=== PATIENT | male | born 1940 | race African-American/Black ===

== ENCOUNTER 2020-02-24 08:23 | Emergency (ER) | payer OTHER ==
--- OUTSIDE RECORDS SUMMARY | 2020-02-24 08:50 | XMS REPORT | Clinical Summary ---
:1940 Author Organization [facility] Address [address] [place] [address] Care Team Providers Name Role Phone Unavailable Primary Care Provider Unavailable Allergies Not on File Medications Not on file Active Problems Not on file Social History Tobacco Use Types Packs/Day Years Used Date Never Assessed Sex Assigned at Date Recorded Not on file Job Start Date Occupation Industry Not on file Not on file Not on file Travel History Travel Start Travel End No recent travel history available. Last Filed Vital Signs Not on file Plan of Treatment Not on file Results Not on fileafter 02/23/2019 Insurance Payer Benefit Plan / Group Subscriber ID Type Phone A [employer]ress [employer] Android App Review [employer] [email or web address] Maps Contracted
--- OUTSIDE RECORDS SUMMARY | 2020-02-24 08:51 | XMS REPORT | Continuity of Care Document ---
:1940 Author Organization [facility] t Address [address] [place] [address] Care Team Providers Name Role Phone MD Sergei DOUGHERTY Primary Care Physician IRICLEMENTINE Attending Clinician Unavailable AHMED Attending Clinician Unavailable IRIBARREN Admitting Clinician Unavailable IAN Admitting Clinician Unavailable Advance Directives Directive Decision Effective Date Termination Date Comments Sour ce Yes N/A [facility] - [place] Problems Condition Condition Condition Status Onset Resolution Last Treating Co mments Source Name Details Category Date Date Treatment Clinician Date 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 failure Elizabe th Dyspnea Problem CHRISTU S - [facility]. 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 injury Elizabe th Pulmonary Problem ARIEL U edema S - St. Elizabe th Chronic Problem CHRISTU obstructiv S - St . e Elizabe pulmonary th disease Elevated Problem CHRISTU internatio S - St . nal Elizabe normalized th ratio (INR) Chest pain Problem [facility] TU S - St. Elizabe th Encounter Problem ARIEL U for wound S - St. re-check Elizabe th Contusion Problem ARIEL U of scalp S - St. Elizabe th Fall Problem [facility]RISTU S - St. 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 Elizabe th Acute Problem [facility]ati [facility] disease Allergies, Adverse Reactions, Alerts Allergy Allergy Status Severity Reaction(s) Onset Inactive Treating Comm ents Source Name Type Date Date Clinician Penicill Allergy Active [facility] 07-18 [facility] Elizabe e 00 th Social History Social Habit Start Date Stop Date Quantity Comments Source Sex Assigned At [birth year] Male [facility] 00:00:00 00:00:00 [place] Smoking Status Start Date Stop Date Source Ex-smoker (finding) 2019-04-12 01:41:00 2019-04-12 01:41:00 [facility] Medications Ordered Filled Start Stop Current Ordering Indication Dosage Frequency Signature Comments Components Source Medication Medication Date Date Medication? Clinician (SIG) Name Name Acetaminoph No 325mg CHRISTU en [facility] Al No 30mL CHRISTU Hydrox/Mg S [facility] Hydrox/Lamont [facility] thicone th Amitriptyli No 25mg CHRISTU ne [facility] Aspirin No 81mg CHRISTU [facility] Atorvastati No 20mg CHRISTU n Calcium [facility] Bisacodyl No 5mg CHRISTU [facility] Budesonide No .5mg [facility]U [facility] Carvedilol No 3.125mg ARIEL U [facility] Furosemide No 40mg [facility]U [facility] Levalbutero No 1.25mg ARIEL U l [facility] Levalbutero No 1.25mg ARIEL U l [facility] Montelukast No 10mg CHRISTU Sodium [facility] Nystatin No [id number] CH[facility]U [facility] Polyethylen No 1 CHRISTU e Glycol S - St [address] [facility] Sacubitril/ No 1 CHRISTU Valsartan S [facility] Tamsulosin No .4mg CHRISTU [facility]cl [facility] Tramadol No 50mg CHRISTU Hcl S [facility] Warfarin No 3mg CHRISTU Sodium S [facility] Warfarin No 3mg [facility]STU Sodium S [facility] Acetaminoph No 325mg CHRISTU en [facility] Al No 30mL CHRISTU Hydrox/Mg S [facility]. Hydrox/Lamont [facility] thicone th Amitriptyli No 25mg CHRISTU ne Hcl [facility] Aspirin No 81mg [facility]RISTU S [facility] Atorvastati No 20mg CHRISTU n Calcium S [facility] Bisacodyl No 5mg CHRISTU [facility] Budesonide No .5mg CHRISTU [facility] Carvedilol No 3.125mg ARIEL U [facility] Doxycycline No 100mg CHRISTU Monohydrate [facility] Furosemide No 40mg CHRISTU [facility] Levalbutero No 1.25mg ARIEL U l Hcl [facility] Levalbutero No 1.25mg ARIEL U l Hcl [facility] Montelukast No 10mg CHRISTU Sodium [facility] Nystatin No [id number] CHRISTU [facility] Polyethylen No 1 CHRISTU e Glycol . [address] [facility] Sacubitril/ No 1 [facility]STU Valsartan [facility] Tamsulosin No .4mg [facility]STU Hcl [facility] Tramadol No 50mg [facility] Hcl [facility] Warfarin No 3mg [facility]U Sodium [facility] Immunizations Ordered Immunization Filled Immunization Date Status Commen ts Source Name Name Flu (3 Yrs +) Hx 2018-03-12 Completed [facility] . 00:00:00 Letitia Flu (3 Yrs +) Hx 2018-03-12 Completed [facility] . 00:00:00 [place]ia Vital Signs Vital Name Observation Time Observation Value Comments Source Body Temperature 2019-04-17 12:00:00 97.9 [degF] [facility] Heart Rate 2019-04-17 12:00:00 93 /min [facility] [place] Respiratory rate 2019-04-17 12:00:00 16 /min [facility] [place] BP Systolic 2019-04-17 12:00:00 93 mm[Hg] [facility] [place] BP Diastolic 2019-04-17 12:00:00 60 mm[Hg] [facility] [place] Weight 2019-04-17 05:10:00 155 [lb_av] [facility] [place] BMI (Body Mass 2019-04-17 05:10:00 25.0 kg/m2 ARIEL US - St. Index) Let[place]ia Respiratory rate 2019-04-15 21:00:00 23 /min [facility] [place] Heart Rate 2019-04-12 01:02:00 89 /min [facility] [place] BP Systolic 2019-04-12 01:02:00 112 mm[Hg] [facility] [place] BP Diastolic 2019-04-12 01:02:00 60 mm[Hg] [facility] [place] Body Temperature 2019-03-22 23:43:00 98.1 [degF] [facility] [place] Heart Rate 2019-03-22 23:43:00 112 /min [facility] [place] Respiratory rate 2019-03-22 23:43:00 18 /min [facility] [place] BP Systolic 2019-03-22 23:43:00 123 mm[Hg] [facility] [place] BP Diastolic 2019-03-22 23:43:00 62 mm[Hg] [facility] [place] Heart Rate 2019-03-22 19:47:00 110 /min [facility] [place] Respiratory rate 2019-03-22 19:47:00 19 /min [facility] [place] BP Systolic 2019-03-22 19:47:00 119 mm[Hg] [facility] [place] BP Diastolic 2019-03-22 19:47:00 67 mm[Hg] [facility] [place] Weight 2019-03-22 17:40:00 189 [lb_av] [facility] [place] BMI (Body Mass 2019-03-22 17:40:00 30.5 kg/m2 ARIEL US - St. Index) Letitia Procedures Procedure Date / Time Performing Source Performed Clinician [facility] [place] X-ray of chest, single view 2019-04[facility] 00[facility]:00 [place] Diagnostic 2019-04-13 [facility] - [facility] esophagogastroduodenoscopy (EGD) 00:00:00 [place]ia with specimen collection Venipuncture requiring physician 2019-04-12 [facility] - St[facility] or skilled healthcare provider in 00:00:00 Letitia patient 3 years of age or older Vascular access with ultrasound 2019-04-12 [facility] - [facility] guidance 00:00:00 [place]ia Insertion PICC w/rs&i 5 yr/> 2019-04-12 [facility] ISTUS - St. 00:00:00 [place]itia X-ray of chest, single view 2019-04-11 [facility] 00:[facility]:00 [place] ECG (electrocardiogram) 2019-04-11 [facility] 00:00:00 [place] Computed tomography of head or 2019-03-22 C [facility] - [facility] brain without contrast 00:00:00 [place]ia Computed tomography of cervical 2019-03-22 [facility] - [facility] spine without contrast 00:00:[address] HEAD/BRAIN W/O DYE 2019-03-22 [facility] 00:00:[address] NECK SPINE W/O DYE 2019-03-22 [facility] 00:00:00 [place] EMERGENCY DEPT VISIT 2019-03-22 [facility] 00:00:00 [place]ia Transparent film <= 16 sq in 2019-03-22 [facility] - [facility] 00:00:00 [place]ia Plan of Care Planned Activity Planned Date Details Comments Source Goal Patient referral [code = [facility] ISTUS - St. [id number] ] Letitia Goal Patient referral [code = [facility] IST[facility] - St. [id number] ] Letitia Instructions Contusion (DC) [facility] - St Letitia Instructions Preventing Falls [facility] - [place] Instructions Acute Kidney Failure (DC) [facility] - [place] Instructions Exacerbation of COPD (DC) [facility] - [place] Encounters Start End Encounter Admission Attending Care Care Encounter Source Date/Time Date/Time Type Type Clinicians Facility Department ID 2019-04-12 2019-04-17 Discharged PHYLLIS LAGOS [id number] [facility]STU 00:00:00 13:30:[address] - [place] Elizab e th 2019-03-22 2019-03-22 Departed PHYLLIS LAGOS [id number] CHRISTU 18:25:00 23:43:[address] - [facility] Room Letitia Elizab e 2017-02-23 2017-02-25 Outpatient 2 BECK SOSA OBE [id number] [facility] 16:17[facility]00 [facility]44[facility] Results Test Description Test Time Test Comments Results Result Comments Source Automated blood leukocyte count (number/volume) 2019-04-17 0 3:40:00 Test Item Value Reference Range Interpretation Comme nts White Blood Count (test code = 6690-2) 9.6 10*3/uL [facility] automated count (number/volume) 2019-04-17 03:40:00 Test Item Value Reference Range Interpretation Comments Red Blood Count (test code = 4.45 10*6/uL 789-8) [facility] ElizabethBlood hemoglobin measurement (mass/volume)2019-04-17 03:40:00 Test Item Value Reference Range Interpretation Comments Hemoglobin (test code = 718-7) 11.2 g/dL [facility] ElizabethAutomated blood hematocrit (volume fraction)2019-04-17 03:40:00 Test Item Value Reference Range Interpretation Comments Hematocrit (test code = 4544-3) 37.0 % [facility] ElizabethAutomated erythrocyte mean corpuscular volume (MCV) [id number] 03:40:00 Test Item Value Reference Range Interpretation Comments Mean Corpuscular Volume (test code = 83 fL 787-2) [facility]. ElizabethAutomated erythrocyte mean corpuscular hemoglobin (mass per erythrocyte)2019-04-17 03:40:00 Test Item Value Reference Range Interpretation Comments Mean Corpuscular Hemoglobin (test 25.2 pg code = 785-6) [facility] - St. ElizabethAutomated erythrocyte mean corpuscular hemoglobin concentration measurement (mass/[id number] 03:40:00 Test Item Value Reference Range Interpretation Comments Mean Corpuscular Hemoglobin Concent 30.3 g/dL (test code = 786-4) [facility]. ElizabethAutomated erythrocyte distribution width [id number] 03:40:00 Test Item Value Reference Range Interpretation Comments Red Cell Distribution Width (test code 20.6 % = 788-0) [facility]. ElizabethAutomated blood platelet count (count/volume)2019-04-17 03:40:00 Test Item Value Reference Range Interpretation Comments Platelet Count (test code = 235 10*3/uL 777-3) [facility]. ElizabethAutomated blood platelet mean volume measurement 2019-04-17 03:40:00 Test Item Value Reference Range Interpretation Comments Mean Platelet Volume (test code = 9.5 28018-4) [facility]. ElizabethAutomated blood neutrophil count as percentage of total kptkqquhjz4274-61-59 03:40:00 Test Item Value Reference Range Interpretation Comments Neutrophils (%) (Auto) (test code = 74 % 770-8) [facility]. ElizabethAutomated blood immature granulocyte count as percentage of total fmousfpzdl6916-92-54 03:40:00 Test Item Value Reference Range Interpretation Comments Immature Granulocyte % (Auto) (test 1 % code = 82817-7) [facility]. ElizabethAutomated blood lymphocyte count as percentage of total [id number] 03:40:00 Test Item Value Reference Range Interpretation Comments Lymphocytes (%) (Auto) (test code = 15 % 736-9) [facility]. ElizabethAutomated blood monocyte count as percentage of total iscufgvpox0774-64-55 03:40:00 Test Item Value Reference Range Interpretation Comments Monocytes (%) (Auto) (test code = 10 % 5905-5) [facility]. ElizabethAutomated blood eosinophil count as percentage of total suigphmsmx1080-62-24 03:40:00 Test Item Value Reference Range Interpretation Comments Eosinophils (%) (Auto) (test code = 0 % 713-8) [facility]. ElizabethAutomated blood basophil count as percentage of total fnwakvleje6096-22-64 03:40:00 Test Item Value Reference Range Interpretation Comments Basophils (%) (Auto) (test code = 0 % 706-2) [facility]. ElizabethAutomated blood nucleated erythrocyte count as percentage of total volwdwfhvb0067-67-08 03:40:00 Test Item Value Reference Range Interpretation Comments Nucleated Red Blood Cells % (test code 0.0 % = 04028-5) [facility]. ElizabethAutomated blood neutrophil count (number/volume) 2019-04-17 03:40:00 Test Item Value Reference Range Interpretation Comments Neutrophils # (Auto) (test code = 7.1 10*3/uL 751-8) [facility] ElizabethAutomated blood immature granulocyte count as percentage of total yhszwpzabc0958-60-12 03:40:00 Test Item Value Reference Range Interpretation Comments Immature Granulocyte # (Auto) 0.1 10*3/uL (test code = 00687-0) [facility]. ElizabethAutomated blood lymphocyte count (number/volume) 2019-04-17 03:40:00 Test Item Value Reference Range Interpretation Comments Lymphocytes # (Auto) (test code = 1.5 10*3/uL 731-0) [facility]. ElizabethBlood monocytes automated count (number/volume) 2019-04-17 03:40:00 Test Item Value Reference Range Interpretation Comments Monocytes # (Auto) (test code = 0.9 10*3/uL 742-7) [facility]. ElizabethAutomated blood eosinophil [id number] 03:40:00 Test Item Value Reference Range Interpretation Comments Eosinophils # (Auto) (test code = 0.0 10*3/uL 711-2) [facility]. ElizabethAutomated blood basophil count (number/volume)2019-04-17 03:40:00 Test Item Value Reference Range Interpretation Comments Basophils # (Auto) (test code = 0.0 10*3/uL 704-7) [facility] St[facility] ElizabethAutomated blood nucleated erythrocyte count (count/volume)2019-04-17 03:40:00 Test Item Value Reference Range Interpretation Comments Nucleated Red Blood Cells # 0.00 10*3/uL (test code = 771-6) [facility] ElizabethService comment [id number] 03:40:00 Test Item Value Reference Range Interpretation Comments Manual Differential (test code = Not Ind 8265-1) [facility] - [facility]. ElizabethSerum or plasma sodium measurement (moles/volume) 2019-04-17 03:40:00 Test Item Value Reference Range Interpretation Comments Sodium Level (test code = 2951-2) 137 mmol/L [facility] ElizabethSerum or plasma potassium measurement (moles/volume) 2019-04-17 03:40:00 Test Item Value Reference Range Interpretation Comments Potassium Level (test code = 3.7 mmol/L 2823-3) [facility] - [facility] ElizabethSerum or plasma chloride measurement (moles/volume) 2019-04-17 03:40:00 Test Item Value Reference Range Interpretation Comments Chloride Level (test code = 2075-0) 96 mmol/L [facility] - [facility] ElizabethSerum or plasma total carbon dioxide measurement (moles/volume)2019-04-17 03:40:00 Test Item Value Reference Range Interpretation Comments Carbon Dioxide Level (test code = 35 mmol/L 8-9) [facility] - [facility] ElizabethSerum or plasma anion gap determination (moles/volume) 2019-04-17 03:40:00 Test Item Value Reference Range Interpretation Comments Anion Gap (test code = 17428-6) 10 [facility] ElizabethSerum or plasma urea nitrogen measurement (mass/volume) 2019-04-17 03:40:00 Test Item Value Reference Range Interpretation Comments Blood Urea Nitrogen (test code = 26 mg/dL 3094-0) [facility] - [facility] ElizabethSerum or plasma creatinine measurement (mass/volume) 2019-04-17 03:40:00 Test Item Value Reference Range Interpretation Comments Creatinine (test code = 2160-0) 1.1 mg/dL [facility] - St. ElizabethGFR estimate [id number] 03:40:00 Test Item Value Reference Range Interpretation Comments Estimat Glomerular Filtration Rate 69 (test code = 51769-5) [facility] ElizabethSerum or plasma glucose measurement (mass/volume) 2019-04-17 03:40:00 Test Item Value Reference Range Interpretation Comments Glucose Level (test code = 2345-7) 89 mg/dL [facility] - [facility] ElizabethSerum or plasma calcium measurement (mass/volume) 2019-04-17 03:40:00 Test Item Value Reference Range Interpretation Comments Calcium Level (test code = 90652-7) 8.5 mg/dL [facility] - [facility]. ElizabethManual blood segmented neutrophils/100 leukocytes 2019-04-15 05:50:00 Test Item Value Reference Range Interpretation Comments Neutrophils % (Manual) (test code = 81 % 769-0) [facility] - [facility]. ElizabethManual blood band neutrophils form/100 leukocytes 2019-04-15 05:50:00 Test Item Value Reference Range Interpretation Comments Band Neutrophils % (Manual) (test code 10 % = 764-1) [facility] - [facility]. ElizabethManual blood lymphocytes/100 [id number] 05:50:00 Test Item Value Reference Range Interpretation Comments Lymphocytes % (Manual) (test code = 3 % 737-7) [facility] - [facility]. ElizabethManual blood monocytes/100 [id number] 05:50:00 Test Item Value Reference Range Interpretation Comments Monocytes % (Manual) (test code = 6 % 744-3) [facility] ElizabethBlood platelet detection by light dzxkafzgof2794-65-12 05:50:00 Test Item Value Reference Range Interpretation Comments Platelet Estimate (test code = Adequate 9317-9) [facility] ElizabethBlood erythrocyte morphology finding identification 2019-04-15 05:50:00 Test Item Value Reference Range Interpretation Comments Red Blood Cell Morphology (test code = Normal 6742-1) [facility] ElizabethBlood anisocytosis detection by light microscopy 2019-04-14 03:43:00 Test Item Value Reference Range Interpretation Comments Anisocytosis (test code = 702-1) 2+ [facility] - [facility]. ElizabethBlood microcytes detection by light [id number] 03:43:00 Test Item Value Reference Range Interpretation Comments Microcytosis (test code = 741-9) 1+ [facility] - [facility]. ElizabethWhole blood hypochromia detection by light microscopy 2019-04-14 03:43:00 Test Item Value Reference Range Interpretation Comments Hypochromasia (test code = 728-6) 2+ [facility] - [facility]. ElizabethCrenated erythrocyte detection by light microscopy 2019-04-14 03:43:00 Test Item Value Reference Range Interpretation Comments Akila Cells/Echinocytes (test code = 1+ 7790-9) [facility] ElizabethBlood target cells detection by light microscopy 2019-04-14 03:43:00 Test Item Value Reference Range Interpretation Comments Target Cells (test code = 71645-7) 1+ [facility] ElizabethBlood schistocyte detection by light microscopy 2019-04-14 03:43:00 Test Item Value Reference Range Interpretation Comments Schistocytes (test code = 800-3) 1+ [facility] - [facility] ElizabethManual blood eosinophil count as percentage of total [id number] 14:00:00 Test Item Value Reference Range Interpretation Comments Eosinophils % (Manual) (test code = 2 % 714-6) [facility] ElizabethBlood polychromasia detection by light microscopy 2019-04-13 14:00:00 Test Item Value Reference Range Interpretation Comments Polychromasia (test code = 58142-6) 1+ [facility] - [facility] ElizabethSerum or plasma total bilirubin measurement (mass/volume)2019-04-13 03:45:00 Test Item Value Reference Range Interpretation Comments Total Bilirubin (test code = 0.8 mg/dL 1974-2) [facility] ElizabethSerum or plasma aspartate aminotransferase measurement (enzymatic activity/volume)2019-04-13 03:45:00 Test Item Value Reference Range Interpretation Comments Aspartate Amino Transf (AST/SGOT) 22 U/L (test code = 1920-8) [facility] - [facility]. ElizabethSerum or plasma alanine aminotransferase measurement (enzymatic activity/volume)2019-04-13 03:45:00 Test Item Value Reference Range Interpretation Comments Alanine Aminotransferase (ALT/SGPT) 21 U/L (test code = 1742-6) [facility] - [facility]. ElizabethSerum or plasma protein measurement (mass/volume) 2019-04-13 03:45:00 Test Item Value Reference Range Interpretation Comments Total Protein (test code = 2885-2) 5.9 g/dL [facility] ElizabethSerum or plasma albumin measurement (mass/volume) 2019-04-13 03:45:00 Test Item Value Reference Range Interpretation Comments Albumin (test code = 1751-7) 3.1 g/dL [facility] - [facility] ElizabethSerum or plasma alkaline phosphatase measurement (enzymatic activity/volume)2019-04-13 03:45:00 Test Item Value Reference Range Interpretation Comments Alkaline Phosphatase (test code = 60 U/L 6768-6) [facility] - [facility] ElizabethSerum or plasma ferritin measurement (mass/volume) 2019-04-13 03:45:00 Test Item Value Reference Range Interpretation Comments Ferritin (test code = 2276-4) 139 ng/mL [facility]. ElibeDetermination of flow rate of inhaled [id number] 17:49:00 Test Item Value Reference Range Interpretation Comments Blood Gas Liter Flow (test code = 3 L/min 3151-8) [facility]. ElizabeArterial blood pH trewsgdxdfp0663-14-56 17:49:00 Test Item Value Reference Range Interpretation Comments Arterial Blood pH (test code = 2744-1) 7.376 [facility] ElizabeArterial blood partial pressure of carbon dioxide 2019-04-12 17:49:00 Test Item Value Reference Range Interpretation Comments Arterial Blood Partial Pressure 44.6 mm[Hg] CO2 (test code = 2019-8) [facility]. ElizabethArterial blood partial pressure of oxygen measurement 2019-04-12 17:49:00 Test Item Value Reference Range Interpretation Comments Arterial Blood Partial Pressure 80.2 mm[Hg] O2 (test code = 2703-7) [facility]. ElizabethArterial blood bicarbonate measurement (moles/volume) 2019-04-12 17:49:00 Test Item Value Reference Range Interpretation Comments Arterial Blood HCO3 (test code = 25.6 mmol/L 1959-4) [facility]. ElizabethArterial blood base excess determination by calculation (moles/volume)2019-04-12 17:49:00 Test Item Value Reference Range Interpretation Comments Arterial Blood Base Excess (test 0.2 mmol/L code = 1925-7) [facility]. ElizabethArterial blood hemoglobin measurement by oximetry (mass/volume)2019-04-12 17:49:00 Test Item Value Reference Range Interpretation Comments Arterial Blood Hemoglobin (test code 8.6 g/dL = 96123-4) [facility]. [place] HillAr[place] blood oxygen saturation [id number] 17:49:00 Test Item Value Reference Range Interpretation Comments Arterial Blood Oxygen Saturation (test 95.7 % code = 2708-6) [facility] ElibethArterial blood carboxyhemoglobin/total hemoglobin ratio (mass fraction)2019-04-12 17:49:00 Test Item Value Reference Range Interpretation Comments Arterial Blood Carboxyhemoglobin (test 1.2 % code = 2030-5) [facility] met[facility]/total hemoglobin ratio (mass fraction)2019-04-12 17:49:00 Test Item Value Reference Range Interpretation Comments Arterial Blood Methemoglobin (test code 0.2 % = 2615-3) [facility] ElibeArterial blood oxyhemoglobin/total hemoglobin ratio (mass fraction)2019-04-12 17:49:00 Test Item Value Reference Range Interpretation Comments Arterial Blood Oxyhemoglobin (test 94.4 % code = 2714-4) [facility] deoxyhemoglobin/total hemoglobin mass [id number] 17:49:00 Test Item Value Reference Range Interpretation Comments Reduced Hemoglobin (test code = 4.2 % 30353-9) [facility] ElibeArterial blood oxygen content by [id number] 17:49:00 Test Item Value Reference Range Interpretation Comments Arterial Blood Oxygen Content 11.5 mL/dL (test code = 06047-6) [facility]. [facility] deliv source Bystuyrvcox9936-08-26 17:49:00 Test Item Value Reference Range Interpretation Comments Oxygen Delivery Device (test code = CANNULA 23307-7) [facility] Hospitalpecimen drawn from [id number] 17:49:00 Test Item Value Reference Range Interpretation Comments Blood Gas Puncture Site (test Left Radial code = 57081-5) [facility] patency prior to arterial [id number] 17:49:00 Test Item Value Reference Range Interpretation Comments Fabian Test (test code = 01129-3) Pass [facility] identification by respiratory [id number] 17:15:00 Test Item Value Reference Range Interpretation Comments Respiratory Culture Staphylococcus aureus (test code = 43273-2) [facility] or plasma iron measurement (mass/volume)2019-04-12 08:52:00 Test Item Value Reference Range Interpretation Comments Iron Level (test code = 2498-4) 7 ug/dL [facility] plasma unsaturated iron binding capacity measurement (mass/volume)2019-04-12 08:52:00 Test Item Value Reference Range Interpretation Comments Unsaturated Iron Binding (test code 213 ug/dL = 2501-5) [facility] plasma iron binding capacity measurement (mass/volume)2019-04-12 08:52:00 Test Item Value Reference Range Interpretation Comments Total Iron Binding Capacity (test 220 ug/dL code = 2500-7) [facility] plasma iron saturation measurement (mass fraction)2019-04-12 08:52:00 Test Item Value Reference Range Interpretation Comments Percent Iron Saturation (test code = 3 % 2502-3) [facility] blood natriuretic peptide B measurement (mass/volume)2019-04-11 20:00:00 Test Item Value Reference Range Interpretation Comments Bedside B-Type Natriuretic Peptide 88 pg/mL (test code = 39150-6) [facility] cardiac troponin I measurement (mass/volume) 2019-04-11 19:58:00 Test Item Value Reference Range Interpretation Comments Bedside Troponin I (test code = 0.04 ng/mL 84623-1) [facility] platelet apvzcrut1449-66-22 19:54:00 Test Item Value Reference Range Interpretation Comments Immature Platelet Fraction (test code = 0.8 % 43290-9) [facility]ual blood basophils/100 [id number] 19:54:00 Test Item Value Reference Range Interpretation Comments Basophils % (Manual) (test code = 1 % 707-0) [facility] blood metamyelocytes/100 jmfmwtbddw6808-91-71 19:54:00 Test Item Value Reference Range Interpretation Comments Metamyelocytes % (test code = 740-1) 1 % [facility] ovalocytes detection by light hgodhzjkvb7450-75-18 19:54:00 Test Item Value Reference Range Interpretation Comments Ovalocytes (test code = 774-0) 1+ [facility] dacrocytes detection by light bxgcgihjos0592-41-33 19:54:00 Test Item Value Reference Range Interpretation Comments Tear Drop Cells (test code = 7791-7) 1+ [facility]Prothrombin time (PT) in platelet poor [id number] 19:54:00 Test Item Value Reference Range Interpretation Comments Prothrombin Time (test code = 5902-2) 11.[address] [facility] Platelet poor plasma by Coagulation assay 2019-04-11 19:54:00 Test Item Value Reference Range Interpretation Comments Prothromb Time International 1.1 {ratio} Ratio (test code = 6301-6) [facility] partial thromboplastin time (PTT)2019-04-11 19:54:00 Test Item Value Reference Range Interpretation Comments Activated Partial Thromboplast Time 25.9 s (test code = 28422-9) [facility] [id number] 15:51:[address] [address]DKPJIWKBWC IMAGING REPORTPatient Name: Godwin PANIAGUA of Service: [id number]: 78 Sex: M Order #: 100 Room: ORMDOB: 1940 X-Ray Number: [id number] Record Number: [id number] Hospital Number:[id number] Physician: Ayesha DOUGHERTY Physician: Giovanny DOUGHERTY densitometry study:History: Osteoporosis.Findings:Region of interest measurements were taken of the lumbar spine from Q6vozwnmc L4. Bone mineral density measures 1.339 g/sq cm. This correspondsto T score of 1.0. This is consistent with a normal bone density.Additional region of interest measurements were obtained of the hips.Bone mineral density in the left femur neck is 1.052 g/sq cm. Thiscorresponds to T score of -0.1 consistent with a normal bone density .Bone mineral density in the right femur neck is 1.053 g/sq cm. Thiscorresponds to a T score of -0.1 consistent with a normal density .Impression:Findings consistent with normal bone density .For additional details, please see computed generated report from same day.Electronically Signed By: Cosme Norman M.D., 02/14/2019 12:01 PMLegally authenticated by FELIZ TALAMANTES 2019-02-14 12:01:52CT Angio Chest 2018-08-15 17:07:28Patient: DEMARCO PANIAGUA Jr Date/Time08/15/201816:44 CSTReason for Examshortness of breathReportInformation: Dyspnea, chest pain, former smoking history and recent cardiac pacemaker placementCTA of the chestMultiplanar reformatted 2-D and 3-D images of the chest were obtained following the intravenous injection of 100 cc of Omnipaque 350 nonionic contrast mediumThere are no intraluminal filling defects within the imaged pulmonary arteries. Atherosclerotic changes of the thoracic aorta is demonstrated without aneurysmal dilatation. The heart is wi thin normal limits in size. There is no evidence of a pericardial effusion. There are no mediastinalmasses. There are no enlarged mediastinal lymph nodes. Multiple bilateral bulla are identified. Reticular-nodular interstitial changes consistent with pulmonary fibrosis throughout both lung lei. There are linear pleural parenchymal opacities consistent with scarring. Confluent opacity of the rightlower lobe can represent focal fibrosis. Infiltrate is not excluded. The possibility of early neoplasm formation is less likely. There are no pleural effusions. Moderate kyphosis and spondyloarthropathy changes of the thoracic spine is demonstrated. Left-sided cardiac pacemaker/defibrillator is noted.There is a edema surrounding the the battery consistent with recent pacemaker placement. There are multiple bilateral cortical renal cysts. Gallstones are identified.IMPRESSION::1. No evidence of pulmonary emboli2. COPD3. Bilateral pulmonary fibrosis and pleural parenchymal scarring4. Confluent opacity of the right lower lobe which can represent focal fibrosis. Infiltrate not excluded. The possibility of neoplasm is less likely5. Cardiac pacemaker.6. Bilateral cortical renal cysts7. CholelithiasisRadiation dose lowering techniques were used with automated exposure control, adjusting the mA according to patient's size. Final Dictated by: MD Liu Gustavo MDictated DT/TM: 08/15/2018 5:03 pmSigned by: MD Liu Gustavo MSigned (Electronic Signature): 08/15/2018 5:07 pmMRI UP EXT W/[id number] 14:36:[address] [address]SBYUGTVZNW IMAGING REPORTPatient Name: Godwin PANIAGUA of Service: [id number]: 78 Sex: M Order #: 100 Room: OPEDOB: 1940 X-Ray Number: [id number] Record Number: [id number] Hospital Number:[id number] Physician: Ayesha DOUGHERTY Physician: TITO DOUGHERTY right shoulder without contrast 12:00 PMHISTORY: Status post fall with RIGHT shoulder pain and decreased range ofmotion.FINDINGS:There is a full-thickness rotator cuff tear involving the supraspinatuscritical zone far anteriorly measuring 14 mm in length. This issuperimposed and hypertrophic tendinosis.There is AC joint hypertrophic change mildly encroaching on themyotendinous junction.The biceps tendon lies within the bicipital groove.There is no evidence for displaced labral tear.Moderate degree of bursitis and a small joint effusion.There is no acute fracture or dislocation.There is mild glenohumeral joint osteoarthritis.No substantial muscular atrophy is identified.IMPRESSION:Small full-thickness rotator cuff tear.Osteoarthritis.Electronically Signed By: Cosme Norman M.D., 04/19/2018 2:33 PMLegally authenticated by FELIZ TALAMANTES 2018-04-19 14:33:27MRI BRAIN W/O [id number] 11:45:[address] [address]XUBIRALGBB IMAGING REPORTPatient Name: Godwin PANIAGUA of Service: [id number]: 77 Sex: M Order #: 100 Room: OPODOB: 1940 X-Ray Number: [id number] Record Number: [id number] Hospital Number:[id number] Physician: Ayesha DOUGHERYT Physician: HIRA DOUGHERTYBrain MRI.History: Right-sided weakness and numbness.Technique: Unenhanced multiplanar multisequence MRI images of the brainwere reviewed.Comparison: None.Findings:There are no specific acute appearing intracranial defectsdepicted.There is scattered periventricular deep white matter high signal mostconsistent with chronic microvascular ischemic changes.The ventricles appear symmetric and midline.The lira-white matter dif ferentiation appears normal.The intracranial flow voids appear normal.There are no areas of diffusion restriction to suggest the presence ofacute or subacute ischemia.Impression:Old appearing ischemic changes, no specific acute appearing intracranialdefects.Electronically Signed By: Michael Arguelles M.D., 10/03/2017 11:43 AMLegally authenticated by DUNCAN Epstein 2017-10-03 11:43:21WHOLE BLOOD [id number] 12:22:00 Test Item Value Reference Range Interpretation Comments WHOLE BLOOD GLUCOSE 114 mg/dL 70-99 H Fastin g glucose (test code = POC GLU) normal <100 MG/DL- [employer] recommend ation CHEST XR 2 [id number] 08:06:[address] [address]ZCDZYXKQLI IMAGING REPORTPatient Name: Godwin PANIAGUA of Service: [id number]: 77 Sex: M Order #: [id number] [facility]SDOB[facility] 1940 X-Ray Number: [id number] Record Number: [id number] HospitalNumber: [id number] Physician: Tika SOSA Physician: CLEO SOSA.7:26 AMHistory: Short of breath.Comparison: September 06, 2017.Technique: PA and lateral chest projections.Findings: PA and lateral views of the chest demonstrate normal heart sizeand strandy left basilar infiltrate, similar to that which was notedpreviously.Impression:Persistent left basilar infiltrate, probable pneumo kassi, correlateclinically.Electronically Signed By: Michael Arguelles M.D., 09/07/2017 8:03 AMLegallyauthenticated by DUNCAN Epstein 2017-09-07 08:03:41 WHOLE BLOOD [id number] 19:57:00 Test Item Value Reference Range Interpretation Comments WHOLE BLOOD GLUCOSE 162 mg/dL 70-99 H Fastin g glucose (test code = POC GLU) normal <100 MG/DL- [employer] recommend ation WHOLE BLOOD [id number] 17:32:00 Test Item Value Reference Range Interpretation Comments WHOLE BLOOD GLUCOSE 209 mg/dL 70-99 H Fastin g glucose (test code = POC GLU) normal <100 MG/DL- [employer] recommend ation WHOLE BLOOD [id number] 16:57:00 Test Item Value Reference Range Interpretation Comments WHOLE BLOOD GLUCOSE 147 mg/dL 70-99 H Fastin g glucose (test code = POC GLU) normal <100 MG/DL- [employer] recommend ation CHEST XR 2 [id number] 13:33:[address] [address]HHDVJUCVIS IMAGING REPORTPatient Name: Godwin PANIAGUA of Service: [id number]: 77 Sex: M Order #: [id number] [facility] 4SDOB[facility] 1940 X-Ray Number: [id number] Record Number: [id number] Hospital Number: [id number] Physician: Tika SOSA Physician: Cleo SOSA 2 views 11:15 AMHISTORY: Emphysema, and my previous smoker.FINDINGS:There is a patchy and strandy density at the LEFT lung base could representatelectasis or developing pneumonia.There is emphysema.Heart size is stable.There is no definite pleural effusion or pneumothorax.IMPRESSION:Patchy LEFT lower lobe pulmonary infiltrate which could representatelectasis versus pneumonia.Electronically Signed By: Cosme Norman M.D., 09/06/2017 1:31 PMLegally authenticated by FELIZ TALAMANTES 2017-09-06 13:31:17 WHOLE BLOOD [id number] 08:04:00 Test Item Value Reference Range Interpretation Comments WHOLE BLOOD GLUCOSE 173 mg/dL 70-99 H Fastin g glucose (test code = POC GLU) normal <100 MG/DL- [employer] recommend ation WHOLE BLOOD [id number] 07:41:00 Test Item Value Reference Range Interpretation Comments WHOLE BLOOD GLUCOSE 205 mg/dL 70-99 H Fastin g glucose (test code = POC GLU) normal <100 MG/DL- [employer] recommend ation [id number] 05:49:00 Test Item Value Reference Range Interpretation Comments WBC (test code = WBC) 25.8 K/UL 3.5-10.9 H RBC (test code = RBC) 4.04 M/UL 4.3-5.7 L HGB (test code = HGB) 10.9 G/DL 13.0-17.9 L HCT (test code = HCT) 33.3 % 38-52 L MCV (test code = MCV) 82.4 FL 80-98 MCH (test code = MCH) 27.0 PG 28-32 L MCHC (test code = MCHC) 32.7 G/DL 32.5-36.5 RDW (test code = RDW) 16.9 % 11.5-14.5 H PLT (test code = PLT) 463 K/UL 150-450 H MPV (test code = MPV) 9.6 FL 7.4-10.4 MANDIFF (test code = MANDIFF) YES SCAN (test code = SCAN) NO NEUT% (test code = NEUT%) 83 % 40-75 H LYMPH% (test code = LYMPH%) 8 % 24-44 L MONO% (test code = MONO%) 5 % 0-13 BAND (test code = BAND) 2 RLYMP (test code = RLYMP) 2 NRBC% (test code = NRBC%) 0 /100 WBC PLT-EST (test code = PLT-EST) INCREASED NORMAL ANISOCYTOISIS (test code = ANIS) 2+ AKILA CELLS (test code = BURC) 2+ ABS NEUT (test code = NEUT) 22.2 K/UL 1.2-7.2 H BMP, BASIC METABOLIC [id number] 05:27:00 Test Item Value Reference Range Interpretation Comments SODIUM (test code 143 MMOL/L 137-145 = NA) K+ (test code = 3.8 MMOL/L 3.5-5.1 PLEASE NOTE NEW KSERUM) REFERENCE RANGE (S) IN EFFECT EFF ECTIVE 01/14/2010 - NEW ANALYZER (VITRO S 5600) CHLORIDE (test 100 MMOL/L 98-107 code = CL) CO2 (test code = 30 MMOL/L 22-30 CO2) BUN (test code = 21 MG/DL 9-20 H BUN) CREA (test code = 0.9 MG/DL 0.8-1.5 CREA) GLUCOSE (test code 166 MG/DL 70-99 H Fasting glucose = GLUCOSE) normal <100 MG/ DL- [employer] recommendation* * CALCIUM (test code 8.9 MG/DL 8.4-10.2 = CABLOOD) GFR (test code = TNP GFR CALCULA TION IS GFR) mL/min/1.73m2 NOT APPLICABLE FOR PATIENTS <18 A GFR of >90 mL/min/1 .73m2 is considered n ormal. [id number] 22:27:00 Test Item Value Reference Range Interpretation Comments MG (test code = MG) 1.8 mg/dL 1.6-2.3 [id number] 22:26:00 Test Item Value Reference Range Interpretation Comments K+ (test code = 4.0 MMOL/L 3.5-5.1 PLEASE NOTE NEW KSERUM) REFERENCE RANGE (S) IN EFFECT EFF ECTIVE 01/14/2010 - NEW ANALYZER (VITROS 5600) WHOLE BLOOD [id number] 20:45:00 Test Item Value Reference Range Interpretation Comments WHOLE BLOOD GLUCOSE 253 mg/dL 70-99 H Fastin g glucose (test code = POC GLU) normal <100 MG/DL- [employer] recommend ation WHOLE BLOOD [id number] 12:30:00 Test Item Value Reference Range Interpretation Comments WHOLE BLOOD GLUCOSE 248 mg/dL 70-99 H Fastin g glucose (test code = POC GLU) normal <100 MG/DL- [employer] recommend ation WHOLE BLOOD [id number] 09:31:00 Test Item Value Reference Range Interpretation Comments WHOLE BLOOD GLUCOSE 182 mg/dL 70-99 H Fastin g glucose (test code = POC GLU) normal <100 MG/DL- [employer] recommend ation BMP, BASIC METABOLIC [id number] 20:44:00 Test Item Value Reference Range Interpretation Comments SODIUM (test code 138 MMOL/L 137-145 = NA) K+ (test code = 3.3 MMOL/L 3.5-5.1 L PLEASE NOTE NEW KSERUM) REFERENCE RANGE (S) IN EFFECT EFF ECTIVE 01/14/2010 - NEW ANALYZER (VITRO S 5600) CHLORIDE (test 94 MMOL/L 98-107 L code = CL) CO2 (test code = 28 MMOL/L 22-30 CO2) BUN (test code = 22 MG/DL 9-20 H BUN) CREA (test code = 1.1 MG/DL 0.8-1.5 CREA) GLUCOSE (test code 209 MG/DL 70-99 H Fasting glucose = GLUCOSE) normal <100 MG/ DL- [employer] recommendation* * CALCIUM (test code 8.9 MG/DL 8.4-10.2 = CABLOOD) GFR (test code = TNP GFR CALCULA TION IS GFR) mL/min/1.73m2 NOT APPLICABLE FOR PATIENTS <18 A GFR of >90 mL/min/1 .73m2 is considered n ormal. [id number] 20:08:00 Test Item Value Reference Range Interpretation Comments WBC (test code = 13.1 K/UL 3.5-10.9 H WBC) RBC (test code = 4.38 M/UL 4.3-5.7 RBC) HGB (test code = 12.1 G/DL 13.0-17.9 L HGB) HCT (test code = 36.0 % 38-52 L HCT) MCV (test code = 82.2 FL 80-98 MCV) MCH (test code = 27.6 PG 28-32 L MCH) MCHC (test code = 33.6 G/DL 32.5-36.5 MCHC) RDW (test code = 16.6 % 11.5-14.5 H RDW) PLT (test code = 451 K/UL 150-450 H PLT) MPV (test code = 9.8 FL 7.4-10.4 MPV) MANDIFF (test code = NO MANDIFF) SCAN (test code = NO SCAN) NEUT% (test code = 88.4 % 40-75 H NEUT%) LYMPH% (test code = 6.7 % 24-44 L LYMPH%) MONO% (test code = 3.9 % 0-13 MONO%) EOS% (test code = 0.0 % 0-4 EOS%) BASO % (test code = 0.2 % 0-2 BASO%) IG% (test code = 0.8 % 0-1 IG% = Metam yelocytes, IG%) Myelocytes, and Promyelocytes. (Immature neutr ophils not including " bands".) > 3% IG indic ates risk of sepsis NRBC% (test code = 0 /100 WBC NRBC%) ABS NEUT (test code 11.6 K/UL 1.2-7.2 H = NEUT) [id number] 10:08:00QRS Interval: 108msQT Interval: 446msQTC Interval: 489msP Greenwood: 70degQRS [place]: -75degT Wave [place]: 107degP-R Interval: 156msecRR Interval: 833msecHeart Rate: 72bpmI 40 [place]: 74degT 40 [place]: -81degST [place]: 68degEKG Severity: - ABNORMAL ECG -REPORT:Sinus rhythmREPORT:Ventricular premature complexREPORT:Biatrial enlargementREPORT:Left anterior fascicular blockREPORT:Anterolateral infarct, acute (LAD)REPORT:ST elevation, consider inferior [id number] 10:07:00QRS Interval: 89msQT Interval: 412msQTC Interval: 485msP Green[place]: -45degQRS [place]: -79degT Wave [place]: 145degP-R Interval: 151msecRR Interval: 723msecHeart Rate: 83bpmI 40 [place]: 161degT 40 [place]: -86degST [place]: 22degEKG Severity: - ABNORMAL ECG -REPORT:Ectopic atrial rhythmREPORT:Inferior infarct, oldREPORT:Anterolateral infarct, acute (LAD)EKG 2017-08-09 10:06:00QRS Interval: 100msQT Interval: 444msQTC Interval: 513msP [place]: -71degQRS [place]: -81degT Wave [place]: 137degP-R Interval: 101msecRR Interval: 750msecHeart Rate: 80bpmI 40 [place]: degT 40 [place]: -86degST [place]: 63degEKG Severity: - ABNORMAL ECG -REPORT:Ectopic atrial rhythmREPORT:Left anterior fascicular blockREPORT:Anterolateral infarct, acute (LAD)REPORT:ST elevation, consider inferior injuryREPORT:Prolonged QT intervalCHEST 1 [id number] 17:35:00[place]ABrad [place] [id number] IMAGING REPORTPatient Name: [facility] Service: [id number]: 76 Sex: M Order #: [id number] Room: [facility] A 4SDOB: 1940 X-Ray Number: [id number] Record Number: [id number] Hospital Number: [id number] Physician: PANTERA SOSA -Ordering Physician: PANTERA SOSA -SANDIP UPRIGHT PORTABLE CHEST:CLINICAL HISTORY: Dyspnea and coughTECHNIQUE: One viewFINDINGS:There are monitor leads seen on the chest.The heart and vascularity within normal limits.There are no active infiltrates or definite effusion seen.There are mild chronic interstitial changes at the lung bases.Impression: No acute changes are demonstrated and there has been no changesince 30 August 2016.Electronically Signed By: Kobe Vidal M.D., 02/23/2017 5:33 PMLegally authenticated by JOSELYN Onofre 2017-02-23 17:33:32MRI C-SPINE W/O [id number] 14:06:[address] [address]NLBLNUQNSE IMAGING REPORTPatient Name: [facility]LL[facility] of Service: [id number]: 76 Sex: M Order #: 100 Room: OPODOB: 1940 X-Ray Number: [id number] Record Number: [id number] Hospital Number:[id number] Physician: BRANDIN BERRIOS [facility] Physician: BRANDIN BERRIOS [facility] spine MRI.Available clinical information: Right shoulder pain with decreased range ofmotion.Technique: Examination consists of sagittal T1, T2, and STIR images. Thereare axial T2 and T2 gradient echo images.Findings: Vertebral body heights and posterior alignment are normallymaintained. There is loss of the normal lordotic curve from C2 through C6,raising possibility of muscle spasm. All the discs have loss of T2 watersignal. There is marked narrowing of the C5-6 disc with moderate narrowingat C4-5 and C3-4. The odontoid process and craniocervical junctionstructures are unremarkable. The visualized cord is of normal size andsignal characteristics. There are areas of increased T1 and T2 signal inthe anterior inferior body of C2, inferior anterior left body of C5, theright posterior body of C7 extending into its lamina, and the upper body ofT2. These areas are consistent with fat deposition and/or hemangiomas.At C2-3, there is slight bulging. The spinal canal is well-maintained. Theneural foramina are adequately maintained.At C3-4, there is moderate disc narrowing and some posterior osteochondralbar formation, worse laterally to the right. The canal diameter is reducedto about 11 mm in midline, not into the range of spinal stenosis. There ismarked bilateral neural foraminal narrowing which could produceradiculopathy to either side.At C4-5, there is moderate narrowing of the disc. The canal is mildlyreduced to about 11 mm, not into the range of spinal stenosis. There issignificant bilateral neural foraminal narrowing mostly due to uncinatehypertrophy. Bilateral radiculopathy is possible.At C5-6, there is marked narrowing of the disc. Canal diameter is reducedto about 10 mm, borderline for spinal stenosis. There is marked bilateralneural foraminal narrowing could produce radiculopathy.At C6-7, there ismild disc narrowing and some mild posterior bulging. Thespinal canal is well-maintained. There is mod erate narrowing of the neuralforamina, worse than left. Left radiculopathy is possible.At C7-T1, there is no significant disc bulging or herniation. The spinalcanal and neuroforamina are well-maintained.Impression:1. Marked C5-6 disc degenerative narrowing and borderline spinal stenosis.2. Moderate disc narrowing at C3-4 and C4-5.3. Marked bilateral neural foraminal narrowing at multiple levels couldproduce radiculopathy.Electronically Signed By: Rambo Rivera M.D., 09/19/2016 2:04 PMLegally authenticated by TAYLOR KENNEDY 2016-09-19 14:04:[id number] 10:59:00QRS Interval: 110msQT Interval: 395msQTC Interval: 427msP Greenwood: 59degQRS [place]wood: -54degT Wave [place]: 55degP-R Interval: 160msecRR Interval: 857msecHeart Rate: 70bpmI 40 [place]: 61degT 40 [place]: -66degST Green[place]: 75degEKG Severity: - ABNORMAL ECG -REPORT:Sinus rhythmREPORT:Left anterior fascicular blockCHEST XR 2 [id number] 16:03:[address] [address]ETYRMXNQUB IMAGING REPORTPatient Name: Godwin PANIAGUA of Service: [id number]: 76 Sex: M Order #: [id number] Room: [facility]: [facility] X- Ray Number: [id number] Record Number: [id number] Hospital Number: [id number] Physician: Chivo BURTONing Physician: JOE BURTON and lateral chest. - 08/30/2016. 1529 hrs.INDICATION: COPD.COMPARISON: Chest of 08/03/2016.FINDINGS:The lungs are moderately hyperinflated. Flattening of the diaphragms ispresent. No consolidation or effusion is seen. The heart, mediastinum, softtissues and osseous structures are stable.IMPRESSION:Stable COPD.Electronically Signed By: Ivonne Seaman M.D., 08/30/2016 4:00 PMLegally authenticated by ABELARDO VITAL 2016-08-30 16:00:[id number] 12:59:00QRS Interval: 101msQT Interval: 352msQTC Interval: 434msP Greenwood: 66degQRS [place]: - 67degT Wave [place]: 46degP-R Interval: 144msecRR Interval: 659msecHeart Rate: 91bpmI 40 [place]: 37degT 40 [place]: -83degST Green[place]: 60degEKG Severity: - ABNORMAL ECG -REPORT:Sinus rhythmREPORT:Ventricular bigeminyREPORT:Left anterior fascicular blockCHEST XR 2 [id number] 10:21:[address] [address]GGQFCWULGP IMAGING REPORTPatient Name: Godwin PANIAGUA of Service: [id number]: 76 Sex: M Order #: [id number] Room: [facility]: 1940 X-Ray Number: [id number] Record Number: [id number] Hospital Number:[id number] Physician: Chivo BURTONing Physician: Elder BURTON 2 views 08/03/2016 at9:40 AM.History: 76-year-old male. COPD.Comparison: 12/04/2015.Findings:There is hyperinflation. There are a few scattered linear densities whichhave a chronic appearance. There is no infiltrate, edema or effusion. Thereis a 0.4 cm granuloma in the right lung base. There is no infiltrate, edemaor effusion. The heart is normal size. The regional skeleton is intact.There are mild degenerative changes ofthe thoracic spine.Impression:1. No evidence of active disease.2. Please see above.3. Recommend follow-up as clinically warranted.Electronically Signed By: Lorena Scott M.D., 08/03/2016 10:18 AMLegally authenticated by MARIA GUADALUPE RED 2016-08-03 10:18:38
--- NOTE | 2020-02-24 09:16 | EDPHYS ---
Physician Documentation [facility] Name: Dean Bella Jr Age: 79 yrs Sex: Male : 1940 Arrival Date: 02/24/2020 Time: 08:24 Bed 6 Private MD: ED Physician Mauricio Kirkland HPI: 02/23 08:39 This 79 yrs old Black Male presents to ER via EMS with complaints of Urinary Retention. claudio 08:39 The patient presents with urinary symptoms, dribbling of urine, retention, unable to claudio void. Onset: The symptoms/episode began/occurred 1 day(s) ago. Modifying factors: The symptoms are alleviated by nothing, the symptoms are aggravated by nothing. Associated signs and symptoms: The patient has no apparent associated signs or symptoms. Severity of symptoms: At their worst the symptoms were mild, in the emergency department the symptoms are unchanged. The patient has not experienced similar symptoms in the past. Historical: - Allergies: 08:29 PENICILLINS; bp - PMHx: 08:29 Hyperlipidemia; Depression; Anxiety; Hypertension; CVA; COPD; GERD; bp - Immunization history:: Adult Immunizations up to date. - Social history:: Smoking status: Patient/guardian denies using tobacco. - Family history:: not pertinent. ROS: 08:39 Constitutional: Negative for fever, chills, and weight loss, Eyes: Negative for injury, claudio pain, redness, and discharge, ENT: Negative for injury, pain, and discharge, Neck: Negative for injury, pain, and swelling, Cardiovascular: Negative for chest pain, palpitations, and edema, Abdomen/GI: Negative for abdominal pain, nausea, vomiting, diarrhea, and constipation, Back: Negative for injury and pain, MS/Extremity: Negative for injury and deformity, Skin: Negative for injury, rash, and discoloration, Neuro: Negative for headache, weakness, numbness, tingling, and seizure, Psych: Negative for depression, anxiety, suicide ideation, homicidal ideation, and hallucinations, Allergy/Immunology: Negative for hives, rash, and allergies, Endocrine: Negative for neck swelling, polydipsia, polyuria, polyphagia, and marked weight changes, Hematologic/Lymphatic: Negative for swollen nodes, abnormal bleeding, and unusual bruising. 08:39 Respiratory: Positive for cough, shortness of breath, at rest. Exam: 08:39 Constitutional: This is a well developed, well nourished patient who is awake, alert, claudio and in no acute distress. Head/Face: Normocephalic, atraumatic. Eyes: Pupils equal round and reactive to light, extra-ocular motions intact. Lids and lashes normal. Conjunctiva and sclera are non-icteric and not injected. Cornea within normal limits. Periorbital areas with no swelling, redness, or edema. ENT: Nares patent. No nasal discharge, no septal abnormalities noted. Tympanic membranes are normal and external auditory canals are clear. Oropharynx with no redness, swelling, or masses, exudates, or evidence of obstruction, uvula midline. Mucous membranes moist. Neck: Trachea midline, no thyromegaly or masses palpated, and no cervical lymphadenopathy. Supple, full range of motion without nuchal rigidity, or vertebral point tenderness. No Meningismus. Chest/axilla: Normal chest wall appearance and motion. Nontender with no deformity. No lesions are appreciated. Cardiovascular: Regular rate and rhythm with a normal S1 and S2. No gallops, murmurs, or rubs. Normal PMI, no JVD. No pulse deficits. Abdomen/GI: Soft, non-tender, with normal bowel sounds. No distension or tympany. No guarding or rebound. No evidence of tenderness throughout. Back: No spinal tenderness. No costovertebral tenderness. Full range of motion. Skin: Warm, dry with normal turgor. Normal color with no rashes, no lesions, and no evidence of cellulitis. MS/ Extremity: Pulses equal, no cyanosis. Neurovascular intact. Full, normal range of motion. Neuro: Awake and alert, GCS 15, oriented to person, place, time, and situation. Cranial nerves II-XII grossly intact. Motor strength 5/5 in all extremities. Sensory grossly intact. Cerebellar exam normal. Normal gait. Psych: Awake, alert, with orientation to person, place and time. Behavior, mood, and affect are within normal limits. 08:39 Respiratory: mild respiratory distress is noted, Respirations: labored breathing, that is mild, Breath sounds: decreased breath sounds, that are mild, Respiratory rate: 20 08:39 : CVA tenderness, is absent, Male external genitalia: normal, Bladder: distension, that is mild, that is moderate. Vital Signs: 08:25 BP 134 / 76; Pulse 85; Resp 20; Temp 98; Pulse Ox 98% on 2 lpm NC; bp MDM: 08:25 Patient medically screened. [facility] 08:43 Differential diagnosis: nonspecific abdominal pain, UTI, urinary retention. Data [facility] reviewed: vital signs, nurses notes, lab test result(s), urinalysis. Data interpreted: quality assurance monitor body: rate is 85 beats/min, rhythm is regular, Pulse oximetry: on 2L(s) per nasal canula, is 98 %. Counseling: I had a detailed discussion with the patient and/or guardian regarding: the historical points, exam findings, and any diagnostic results supporting the discharge/admit diagnosis, lab results, the need for outpatient follow up, for definitive care, a urologist. 09:14 ED course: duggan and instructions given, will follow up, return as needed. [facility] 09:17 ED course: PVR 650 cc , clear. [facility] 02/23 08:26 Order name: Urine Culture [facility] 02/23 09:14 Order name: Urine Dipstick--Ancillary (enter results); Complete Time: 10:33 02/23 08:26 Order name: Duggan; Complete Time: 08:48 [facility] 02/23 08:26 Order name: Urine Dipstick-Ancillary (obtain specimen); Complete Time: 09:07 [facility] 02/23 09:01 Order name: Diet Regular; Complete Time: 09:02 02/23 09:18 Order name: Leg Bag; Complete Time: 10:15 [facility] Administered Medications: 09:19 Drug: Cipro 500 mg Route: PO; bp 09:19 Follow up: Response: No adverse reaction bp Disposition: 02/24/20 09:16 Discharged to Home. Impression: Retention of urine, Retention of urine, unspecified, Chronic obstructive pulmonary disease, unspecified. - Condition is Stable. - Discharge Instructions: Duggan Catheter Care, Adult, Acute Urinary Retention, Male, Chronic Obstructive Pulmonary Disease Exacerbation, Acute Urinary Retention, Male, [id number], Duggan Catheter Care, Adult, [id number]. - Prescriptions for Cipro 250 mg Oral Tablet - take 1 tablet by ORAL route every 12 hours; 14 tablet. Flomax 0.4 mg Oral Capsule, Sust. Release 24 hr - take 1 capsule by ORAL route once daily 1/2 hour following the same meal each day; 14 capsule. - Medication Reconciliation Form, Thank You Letter, Antibiotic Education, Prescription Opioid Use form. - Follow up: Private Physician; When: 2 - 3 days; Reason: Recheck today's complaints, Continuance of care, Re-evaluation by your physician. Follow up: Homar Garcia MD; When: 2 - 3 days; Reason: Recheck today's complaints, Continuance of care, Re-evaluation by your physician. - Problem is new. - Symptoms have improved. Signatures: Dispatcher [employer] EDHI Mauricio Kirkland MD MD cha Williams, Irene, RN RN iw Keaton Russell RN RN bp Corrections: (The following items were deleted from the chart) 10:45 09:16 02/24/2020 09:16 Discharged to Home. Impression: Retention of urine; Retention of iw urine, unspecified; Chronic obstructive pulmonary disease, unspecified. Condition is Stable. Forms are Medication Reconciliation Form, Thank You Letter, Antibiotic Education, Prescription Opioid Use. Follow up: Private Physician; When: 2 - 3 days; Reason: Recheck today's complaints, Continuance of care, Re-evaluation by your physician. Follow up: Homar Garcia; When: 2 - 3 days; Reason: Recheck today's complaints, Continuance of care, Re-evaluation by your physician. Problem is new. Symptoms have improved. claudio
--- NOTE | 2020-02-24 09:16 | ER ---
Nurse's Notes [facility] Name: Dean Bella Jr Age: 79 yrs Sex: Male : 1940 Arrival Date: 02/24/2020 Time: 08:24 Bed 6 Private MD: Diagnosis: Retention of urine;Retention of urine, unspecified;Chronic obstructive pulmonary disease, unspecified Presentation: 02/23 08:25 Chief complaint: EMS states: URINARY RETENTION x24 HR. Coronavirus screen: At this bp time, the client does not indicate any symptoms associated with coronavirus-19. Ebola Screen: No symptoms or risks identified at this time. Initial Sepsis Screen: Does the patient meet any 2 criteria? No. Patient's initial sepsis screen is negative. Does the patient have a suspected source of infection? No. Patient's initial sepsis screen is negative. Risk Assessment: Do you want to hurt yourself or someone else? Patient reports no desire to harm self or others. Onset of symptoms was February 23, 2020 at 21:00. 08:25 Method Of Arrival: EMS: [facility] bp 08:25 Acuity: LUIS MIGUEL 3 bp Triage Assessment: 08:29 General: Appears distressed, uncomfortable, obese, Behavior is appropriate for age. bp Pain: Complains of pain in pelvis. EENT: No deficits noted. Neuro: No deficits noted. Cardiovascular: No deficits noted. Respiratory: No deficits noted. GI: No signs and/or symptoms were reported involving the gastrointestinal system. : Reports inability to void. Derm: No deficits noted. Musculoskeletal: No deficits noted. Historical: - Allergies: 08:29 PENICILLINS; bp - PMHx: 08:29 Hyperlipidemia; Depression; Anxiety; Hypertension; CVA; COPD; GERD; bp - Immunization history:: Adult Immunizations up to date. - Social history:: Smoking status: Patient/guardian denies using tobacco. - Family history:: not pertinent. Screenin:30 Abuse screen: Denies threats or abuse. Denies injuries from another. Nutritional bp screening: No deficits noted. Tuberculosis screening: No symptoms or risk factors identified. Fall Risk None identified. Assessment: 08:30 General: SEE TRIAGE NOTE. bp 10:00 Reassessment: SPOKE WITH FAMILY, PT REFUGEE FROM OUT OF TOWN. D/C ON HOLD FOR TRANSPORT bp ARRANGEMENT. Vital Signs: 08:25 BP 134 / 76; Pulse 85; Resp 20; Temp 98; Pulse Ox 98% on 2 lpm NC; bp ED Course: 08:24 Patient arrived in ED. bp 08:25 Mauricio Kirkland MD is Attending Physician. claudio 08:26 Triage completed. bp 08:30 Arm band placed on. bp 08:30 Patient has correct armband on for positive identification. Bed in low position. Call bp light in reach. Side rails up X2. 08:47 Keaton Russell, RN is Primary Nurse. bp 08:47 Tolentino cath inserted, using sterile technique, 18 Fr., by pa, balloon inflated, to bp gravity drainage, urine specimen collected. 09:16 Homar Garcia MD is Referral Physician. claudio 10:45 No provider procedures requiring assistance completed. Patient did not have IV access iw during this emergency room visit. Administered Medications: 09:19 Drug: Cipro 500 mg Route: PO; bp 09:19 Follow up: Response: No adverse reaction bp Output: 10:44 Urine: 750ml (Tolentino); Total: 750ml. iw Outcome: 09:16 Discharge ordered by . claudio 10:44 Discharged to [facility]. iw 10:44 Condition: good 10:44 Discharge instructions given to patient, Instructed on discharge instructions, follow up and referral plans. medication usage, Demonstrated understanding of instructions, follow-up care, medications, Prescriptions given X 2. 10:45 Patient left the ED. iw Signatures: Mauricio Kikrland MD MD cha Williams, Irene, RN RN iw Keaton Russell, RN RN bp Corrections: (The following items were deleted from the chart) 10:53 10:52 Urine 750, (Tolentino), Output Total 750. iw iw
[2020-02-24] MEDS ORDERED: CIPROFLOXACIN HCL 500 MG TAB ONE (09:26)
[2020-02-24 09:31] LABS: Urine Blood 1+ (NEG); Urine Glucose NEGATIVE (NEG); Urine Protein NEGATIVE (NEG)
[2020-02-24 10:52] VITALS: BP 134/76; TEMP 98; O2SAT 98
== END 2020-02-24 10:45 | disposition home or self-care (01) ==
LOC: ER 08:23
DX: R33.9 Retention of urine, unspecified (principal); J44.9 Chronic obstructive pulmonary disease, unspecified; I10 Essential (primary) hypertension; Z88.0 Allergy status to penicillin
CPT/HCPCS: 51702; 81003; 87086; 87088; 99284